=== PATIENT | male | born 1980 | race Caucasian/White ===

== ENCOUNTER 2024-12-14 10:32 | Outpatient (REF) | payer MEDICAID, SELFPAY ==
[2024-12-14 11:50] LABS: MANUAL DIFF FLAG NO
--- OUTSIDE RECORDS SUMMARY | 2024-12-14 12:01 | XMS_ITS | Clinical Summary ---
Author Organization [facility] Address [address] [place] [address] Care Team Providers Care Foreign Policy Officer Name Role Phone NameGrayson MD Primary Care Provider Allergies Active Allergy Reactions Criticality Noted Date Comments Penicillins Rash High 12/08/2024 Medications Blood Pressure kitIndications:E levated blood pressure reading Check once a day 1 kit 12/08/2024 Active Active Problems Problem Noted Date Diagnosed Date Hypercholesterolemia 10/06/2019 Resolved Problems Problem Noted Date Diagnosed Date Resolved Date Vitamin D deficiency 01/13/2022 025 Encounters Date Type Department Care Team Description 12/08/2024 10:45 AM EDT Office Visit [facility] [address] [place] [phone] Grayson Singh MD Hypercholesterolemia (Primary Dx); Elevated blood pressure reading; Obesity (BMI 30-39.9); History of vitamin D deficiency; Encounter for immunization 12/08/2024 Travel 12/01/2024 Patient Outreach [facility] [address] [place], [place] [phone] Grayson Singh MD Pre-visit Planning (SDOH negative, Tobacco screening negative. ) 11/18/2024 Population Health Risk Score [facility] ([facility]) Department [address] [facility] [address] [place] [id number] Provider, Population Health Generic 09/23/2024 Telephone [facility] [address] [place] [address] Devaughn Koch MD telephone call from Last 3 Months Immunizations Name Administration Dates Next Due Influenza Injectable Quadriv alant Preservative Free IIV4 MDCK 06/23/2018 Influenza injectable quadriv alent IIV4 with preservative 05/08/2020 Tdap 12/08/2024,08/30/2013,11/01/2012 Family History Medical History Relation Name Comments Hypertension Mother Relation Name Status Comments Mother Social History Tobacco Use Types Packs/Day Years Used Date Smoking Tobacco: Never Smokeless Tobacco: Never Tobacco Cessation:Counseling Given: Not Answered Alcohol Use Standard Drinks/Week Comments Defer 0 (1 standard drink = 0.6 oz pur e alcohol) occasionally Depression Answer Date Recorded Patient Health Questionnaire-9 Score 5 12/08/2024 Patient Health Questionnaire-9 Score 5 12/08/2024 Last PHQ-9: Questionnaire Data Not on file 0 12/08/2024 Housing Stability Answer Date Recorded What is your housing situation today? I have carol enrique 12/01/[address] you li ve. Do you have problems with any of the following? None of the above 12/01/2024 Food Insecurity Answer Date Recorded Within the past 12 months, y ou worried that your food would run out before you got money to buy more: Never True 12/01/2024 Within the past 12 months,th e food you bought just didn't last and you didn't have enough money to get more: Never True Transportation Answer Date Recorded In the past 12 months, has l ack of transportation kept you from medical appts, meetings, work or from getting things needed for daily living? No 12/01/2024 Utilities Answer Date Recorded In the past 12 months, has t he electric, gas, oil or water company threatened to shut off services in your home? No 12/01/2024 Depression Answer Date Recorded Patient Health Questionnaire-2 Score 2 12/08/2024 Internet Access Answer Date Recorded Internet Access Q1 Yes 12/01/2024 Internet Access Q2 Not on file 12/01/2024 Sex and Gender Information Value Date Recorded Sex Assigned at Male 05/27/2024 1:52 PM EDT Legal Sex Male 1:49 PM EDT Gender Identity Male 05/27/2024 1:52 PM EDT Sexual Orientation Straight 05/27/2024 1: 54 PM EDT Occupation Industry Job Start Date Job End Date [employer] Not on file Not on fi le Not on file Last Filed Vital Signs Vital Sign Reading Time Taken Comments Blood Pressure 157/94 12/08/2024 10:38 AM EDT Pulse 86 12/08/2024 10:38 AM EDT Temperature 36.8 ??C (98.3 ??F) 12/08/2024 10:38 AM E DT Respiratory Rate 21 12/08/2024 10:38 AM EDT Oxygen Saturation 98% 12/08/2024 10:38 AM EDT Inhaled Oxygen Concentration - - Weight 112 kg (246 lb) 12/08/2024 10:38 AM EDT Height 167.6 cm (5' 6 ) 12/08/2024 10:38 AM EDT Body Mass Index 39.71 12/08/2024 10:38 AM EDT Plan of Treatment Upcoming Encounters Date Type Department Care Team (Late st Contact Info) Description 12/16/2024 11:30 AM EDT Telemedicine [facility] [address] [place] [phone] 03/28/2025 10:00 AM EDT Office Visit [facility] [address] [place] [phone] Name, MD Grayson [address] [place] [phone] Health Maintenance Due Date Last Done Comments HIV Screening 1981 Lipid Panel 1981 Alcohol/Substance Use Screening 1993 Family Planning (PISQ) 1996 Hepatitis C Screening 1999 Hepatitis B Vaccines (1 of 3 - 19+ 3-dose series) 2000 COVID-19 Vaccine (2 - 2023-2 5 season) 2024 12/19/2023 Influenza Vaccine (#1) 2024 , 06/23/2018 Depression Screening 12/08/2025 12/08/2024, 12/08/2024 SDOH Screening 12/08/2025 12/08/2024 Tobacco Screening 12/08/2025 12/08/2024 Zoster Vaccines (1 of 2) 2031 DTaP/Tdap/Td Vaccines (4 - T d or Tdap) 12/08/2034 12/08/2024, 08/30/2013, 11/01/2012 RSV Patients and Patients Aged 60 years or older (1 - 1-dose 75+ series) 2056 HIB Vaccines Aged Out No longer eligi ble based on patient's age to complete this topic HPV Vaccines Aged Out No longer eligi ble based on patient's age to complete this topic Hepatitis A Vaccines Aged Out No long er eligible based on patient's age to complete this topic IPV Vaccines Aged Out No longer eligi ble based on patient's age to complete this topic Meningococcal Vaccine Aged Out No marni liam eligible based on patient's age to complete this topic Pneumococcal Vaccine: Pediatrics (0 to 5 Years) and At-Risk Patients (6 to 49) Years) Aged Out No longer eligible b ased on patient's age to complete this topic RSV under 20 months Aged Out No longe r eligible based on patient's age to complete this topic Rotavirus Vaccines Aged Out No longer eligible based on patient's age to complete this topic Insurance [facility] C3 Care Teams Foreign Policy Officer Relationship Specialty Start Date End Date Name, MD Grayson [address] [place] [phone] PCP - General Internal Medicine 12/08/24
[2024-12-14 12:10] LABS: Basophils Percent Auto 0.3 % (0-2); Eosinophils Absolute Auto 0.5 X10*3/uL (0.0-0.4); Eosinophils Percent Auto 4.8 % (0-4); Hematocrit 42.9 % (42.0-52.0); Hemoglobin 13.7 g/dl (14.0-18.0); Imm Gran Abs Auto 0.05 X10*3/uL (0.00-0.03); Imm Gran Pct Auto 0.5 % (0.0-0.4); Lymphocytes Absolute Auto 3.7 X10*3/uL (1.2-4.9); Lymphocytes Percent Auto 39.4 % (20-40); Mean Corpuscular HGB Conc 31.9 g/dl (31.0-36.0); Mean Corpuscular Hemoglobin 26.7 pg (27.0-33.0); Mean Corpuscular Volume 83.6 fL (80.0-98.0); Mean Platelet Volume 9.9 fL (9.4-12.4); Monocytes Percent Auto 10.1 % (2-11); Neutrophils Absolute Auto 4.3 x10*3/uL (2.0-8.3); Neutrophils Percent Auto 44.9 % (45-73); Platelet Count 386 X10*3/uL (160-400); Red Blood Count 5.13 X10*6/uL (4.60-5.80); Red Cell Distribution Width 13.5 % (11.0-16.0); White Blood Count 9.5 X10*3/uL (4.8-10.8)
[2024-12-14 12:25] LABS: Alanine Aminotransferase 70 U/L (0-40); Albumin Level 4.1 g/dL (3.5-5.0); Alkaline Phosphatase 76 U/L (39-117); Anion Gap 10 (12-20); Aspartate Amino Transferase 29 U/L (5-37); Bilirubin Total 0.5 mg/dL (0.0-1.0); Blood Urea Nitrogen 10 mg/dL (9-16); Carbon Dioxide 27 mmol/L (22-29); Chloride 107 mmol/L (96-108); Cholesterol 218 mg/dL (<200); Estimated Glomerular Filt Rate > 60; Glucose Random 78 mg/dL (60-115); HDL Cholesterol 38 mg/dL (>40); LDL Cholesterol Calculated 163 mg/dL (<100); Potassium 3.5 mmol/L (3.3-5.1); Sodium 140 mmol/L (135-145); Total Protein 7.7 g/dL (6.5-8.0); Triglycerides 89 mg/dL (<150)
[2024-12-14 12:45] LABS: Vitamin D 25-OH Total 11.9 ng/mL (>30)
== END 2024-12-14 10:33 | disposition home or self-care (01) ==
LOC: HO.HHCL 10:32
PROVIDERS: Visit Provider Internal Medicine Geriatric Medicine
DX: E78.00 Pure hypercholesterolemia, unspecified (principal); R03.0 Elevated blood-pressure reading, without diagnosis of hypertension; E66.9 Obesity, unspecified; Z86.39 Personal history of other endocrine, nutritional and metabolic disease
CPT/HCPCS: 36415; 80053; 80061; 82306; 85025